=== PATIENT | male | born 1985 ===

== ENCOUNTER 2018-07-23 10:04 | Emergency (ER) | payer OTHER ==
[2018-07-23 10:26] VITALS: RESP 16; TEMP 98.5; O2SAT 97; BMI 33.5
[2018-07-23] MEDS ORDERED: Sodium Chloride 0.9% 1,000 ML IV STA (11:49)
[2018-07-23] MEDS ORDERED: Alum-Mag Hydrox-Simethicone Susp (30 mL) PO STA (11:52)
[2018-07-23 12:12] LABS: BASO % 0.2 % (0.0-2.0); EOS % 0.4 % (0.0-4.0); HEMOGLOBIN 15.5 g/dL (12.0-18.0); LYMPH # 1.7 K/uL (1.0-4.3); LYMPH % 15.2 % (20.0-40.0); MEAN CORPUSCULAR HEMOGLOBIN 30.9 pg (27.0-31.0); MEAN CORPUSCULAR HGB CONC 34.7 g/dL (33.0-37.0); MONO % 9.4 % (0.0-10.0); NEUT # 8.2 K/uL (1.8-7.0); NEUT % 74.8 % (50.0-75.0); NRBC % 0.2 % (0.0-0.0); RBC 5.01 Mil/uL (4.40-5.90); RED CELL DISTRIBUTION WIDTH 13.7 % (11.5-14.5)
--- NOTE | 2018-07-23 12:17 | ED PDOC ---
HPI: Abdomen Time Seen by Provider: 07/23/18 10:36 Chief Complaint (Nursing): Abdominal Pain Chief Complaint (Provider): Abdominal Pain History Per: Patient History/Exam Limitations: no limitations Onset/Duration Of Symptoms: Days (x3) Current Symptoms Are (Timing): Still Present Quality Of Discomfort: "Pain" Associated Symptoms: Diarrhea. denies: Fever Additional Complaint(s): 33 year old male with no significant past medical history presents to the ED with three days of abdominal pain localized to upper abdomen. Pain is associated with multiple episodes of nonbloody, loose stool. Patient is tolerating PO intak e and fluids. However, after eating patient will usually have an episode of diarrhea. Patient denies fever or any other medical complaints. Patient denies drinking alcohol prior to onset of symptoms. PMD: none provided Past Medical History Reviewed: Historical Data, Nursing Documentation, Vital Signs Vital Signs: Last Vital Signs Temp 98.5 F 07/23/18 10:25 Pulse 88 07/23/18 10:25 Resp 16 07/23/18 10:25 BP 108/70 07/23/18 10:25 Pulse Ox 97 07/23/18 10:25 Primary Care Provider: FAMILY PROVIDER,NO - Medical History PMH: No Chronic Diseases - Family History Family History: States: Unknown Family Hx - Social History Alcohol: Social - Home Medications Home Medications: Ambulatory Orders Medication Instructions Recorded Saccharomyces Boulardi [Florastor] 250 mg PO BID #14 cap 07/23/18 - Allergies Allergies/Adverse Reactions: Allergies Allergy/AdvReac Type Severity Reaction Status Date / Time No Known Allergies Allergy Verified 07/23/18 11:17 Review of Systems ROS Statement: Except As Marked, All Systems Reviewed And Found Negative Constitutional: Negative for: Fever Gastrointestinal: Positive for: Abdominal Pain, Diarrhea Physical Exam - Reviewed Nursing Documentation Reviewed: Yes Vital Signs Reviewed: Yes - Physical Exam Appears: Positive for: No Acute Distress Head Exam: Positive for: ATRAUMATIC, NORMOCEPHALIC Skin: Positive for: Normal Color, Warm, Dry Eye Exam: Positive for: Normal appearance, EOMI, PERRL Cardiovascular/Chest: Positive for: Regular Rate, Rhythm. Negative for: Murmur Respiratory: Positive for: Normal Breath Sounds. Negative for: Respiratory Dist ress Gastrointestinal/Abdominal: Positive for: Soft, Tenderness (moderate epigastric and LUQ tenderness) Extremity: Positive for: Normal ROM (upper and lower). Negative for: Pedal Edema, Deformity Neurological/Psych: Positive for: Awake, Alert, Normal Tone, Oriented (x3) - Laboratory Results Result Diagrams: 07/23/18 12:04 07/23/18 12:04 - ECG O2 Sat by Pulse Oximetry: 97 (RA) Pulse Ox Interpretation: Normal Medical Decision Making Medical Decision Making: Time: 1149 Plan: --CMP --lipase --CBC --Obstructive series --Lidocaine 2% --Maalox --IV fluids --Pepcid --UA On reassessment, pt. reports mild pain improvement however ribbon lap machine tender on exam. Re-exam, left sided abdominal tenderness. CT abd/pelvis ordered. CT shows pancolitis. Re-exam, abd. is soft/nt. Pt. is tolerating po, no distress. Advised fluids, bland diet. probiotics. return to ED if worse, i ncreased pain, fevers, vomiting, or other concerns. Scribe Attestation: Documented by Queenie Baca, acting as a scribe for Lakshmi Magaña PA-C. Provider Scribe Attestation: All medical record entries made by the Scribe were at my direction and personally dictated by me. I have reviewed the chart and agree that the record accurately reflects my personal performance of the history, physical exam, m edical decision making, and the department course for this patient. I have also personally directed, reviewed, and agree with the discharge instructions and disposition. Disposition - Clinical Impression Clinical Impression: Abdominal pain, Colitis - Patient ED Disposition Is Patient to be Admitted: No Counseled Patient/Family Regarding: Studies Performed, Diagnosis, Need For Followup, Rx Given - Disposition Referrals: [facility] [Outside] Disposition: Routine/Home Disposition Time: 18:45 Condition: STABLE Prescriptions: Saccharomyces Boulardi [Florastor] 250 mg PO BID #14 cap Instructions: Colitis (DC) Forms: [employer] (Japanese), [facility] ED School/Work Excuse Print Language: AZERBAIJANI
[2018-07-23 12:18] LABS: URINE BACTERIA RARE (<OCC); URINE BILIRUBIN NEGATIVE (NEGATIVE); URINE BLOOD SMALL (NEGATIVE); URINE CLARITY CLOUDY (Clear); URINE COLOR AMBER (YELLOW); URINE GLUCOSE (UA) NEG (NEGATIVE); URINE LEUKOCYTE ESTERASE NEG Leu/uL (Negative); URINE PROTEIN 30 mg/dL (NEGATIVE); URINE UROBILINOGEN 0.2-1.0 mg/dL (0.2-1.0)
[2018-07-23] MEDS ORDERED: Alum-Mag Hydrox-Simethicone Susp (30 mL) ONE (12:20)
[2018-07-23 12:21] LABS: ALB/GLOB RATIO 1.5 (1.0-2.1); ALBUMIN 4.7 g/dL (3.5-5.0); ALT/SGPT 85 U/L (21-72); AST/SGOT 47 U/L (17-59); BLOOD UREA NITROGEN 10 mg/dl (9-20); CALCIUM 9.6 mg/dL (8.4-10.2); GFR NON-AFRICAN AMERICAN > 60; LIPASE 42 U/L (23-300)
[2018-07-23] MEDS ORDERED: Iohexol 240 (50 ml) PO ONE (14:42)
[2018-07-23] MEDS ORDERED: Iohexol 240 (50 ml) ONE (15:31)
[2018-07-23] MEDS ORDERED: Iohexol 300 100 ML IJ ONE (17:31)
[2018-07-23] MEDS ORDERED: Sodium Chloride 0.9% 50 ML IV ONE (17:31)
--- NOTE | 2018-07-23 18:20 | CT ---
PROCEDURE: CT Abdomen and Pelvis with oral and IV contrast. HISTORY: left sided abd pain COMPARISON: None available. TECHNIQUE: Contiguous axial images of the abdomen and pelvis. Oral and IV contrast was administered. Coronal and Sagittal reformats generated and reviewed. Contrast dose: 95 mL Omnipaque 350 IV Radiation dose: Total exam DLP = 702.35 mGy-cm. This CT exam was performed using one or more of the following dose reduction techniques: Automated exposure control, adjustment of the mA and/or kV according to patient size, and/or use of iterative reconstruction technique. FINDINGS: LOWER THORAX: Partially imaged 7 mm left lower lobe nodule (series 5, image 1). No visible consolidation, pleural effusion, or pneumothorax. LIVER: Hypoattenuation of the liver compatible with hepatic steatosis. GALLBLADDER AND BILE DUCTS: Unremarkable. PANCREAS: Unremarkable. SPLEEN: Unremarkable. ADRENALS: Unremarkable. KIDNEYS AND URETERS: The kidneys enhance symmetrically. No hydronephrosis or obstructing renal calculus. BLADDER: Distended urinary bladder, otherwise unremarkable. REPRODUCTIVE: Unremarkable. APPENDIX: The appendix appears within normal limits of caliber. No secondary signs of acute appendicitis. BOWEL: The stomach is nondistended. The bowel loops appear within normal limits of caliber without evidence of intestinal obstruction. Severe diffuse colonic wall thickening consistent with pancolitis. Wall thickening of the terminal ileum; correlate clinically for infectious/inflammatory etiologies. PERITONEUM: Small pelvic free fluid. No definite free air. LYMPH NODES: Prominent sub cm mesenteric adenopathy, nonspecific. VASCULATURE: No aortic aneurysm. No atherosclerotic calcification or mural plaque present. BONES: No acute osseous abnormality is detected. OTHER FINDINGS: Small fat containing umbilical hernia. IMPRESSION: Severe diffuse colonic wall thickening consistent with pancolitis. Wall thickening of the terminal ileum; correlate clinically for infectious/inflammatory etiologies. Partially imaged 7 mm ground-glass left lower lobe pulmonary nodule. Follow-up CT of the chest suggested for further evaluation if indicated. Hypoattenuation of the liver compatible with hepatic steatosis. Prominent sub cm mesenteric adenopathy, nonspecific. Small pelvic free fluid. Small fat containing umbilical hernia. Additional findings as above.
--- NOTE | 2018-07-23 19:01 | RAD ---
Date of service: 07/23/2018 PROCEDURE: Radiographs of the chest and abdomen (obstructive series) HISTORY: abd. pain COMPARISON: No priors. TECHNIQUE: AP radiograph of the chest, with upright and supine radiographs of the abdomen. FINDINGS: CHEST: Examination limited by hypoinflation. Heart size appears within normal limits. Linear atelectasis, left lung base. No focal consolidation, significant pleural effusion, or definite pneumothorax. Please note that chest x-ray has limited sensitivity for the detection of pulmonary masses. Left nipple ring. ABDOMEN AND PELVIS: Paucity of bowel gas. Nonspecific bowel gas pattern. No definite free air. No acute osseous abnormality is detected. IMPRESSION: Linear atelectasis, left lung base. Paucity of bowel gas. Nonspecific bowel gas pattern. Incidental findings as above.
[2018-07-23 19:04] VITALS: BP 110/67; PULSE 72
== END 2018-07-23 18:50 | disposition home or self-care (01) ==
LOC: H.ER 10:04
DX: R10.9 Unspecified abdominal pain (principal); K52.9 Noninfective gastroenteritis and colitis, unspecified
CPT/HCPCS: 74022; 74177; 80053; 81003; 83690; 85025; 96361; 96374; 99283; J7030; Q9966; Q9967